=== PATIENT | female | born 1965 | race African-American/Black ===

== ENCOUNTER 2023-06-15 15:50 | Inpatient (IN) | payer MEDICARE, OTHER ==
[~2023-06-15] VITALS: Ht 172.7 cm; Wt 98.9 kg
[2023-06-15] MEDS ORDERED: OLAN20TA3 PO (16:11)
[2023-06-15] MEDS ORDERED: NA P133E RC (16:11)
[2023-06-15] MEDS ORDERED: LOXA25CA PO (16:11)
[2023-06-15] MEDS ORDERED: LORA-259 PO (16:11)
[2023-06-15] MEDS ORDERED: ACET-868 PO (16:11)
[2023-06-15] MEDS ORDERED: BISA10SU11 RC (16:11)
[2023-06-15] MEDS ORDERED: BENZ1TAB7 PO (16:11)
[2023-06-15] MEDS ORDERED: MAGN400O6 PO (16:11)
[2023-06-15] MEDS ORDERED: DIVA500T2 PO (16:11)
[2023-06-15 17:30] LABS: BASOPHILS # (AUTO) 0.1 K/uL (0.0-0.2); BASOPHILS % (AUTO) 1.1 % (0.0-2.0); EOSINOPHILS # (AUTO) 0.3 K/uL (0.0-0.7); HEMATOCRIT 36 % (33-45); HEMOGLOBIN 11.6 g/dL (11.5-14.8); LYMPHOCYTES # (AUTO) 2.7 K/uL (0.8-4.8); LYMPHOCYTES % (AUTO) 38.3 % (20.0-44.0); MEAN CORPUSCULAR HEMOGLOBIN 27 PG (26.0-33.0); MEAN CORPUSCULAR HGB CONC 32 g/dl (31.0-36.0); MEAN CORPUSCULAR VOLUME 86 fL (82-100); MONOCYTES # (AUTO) 0.6 K/uL (0.1-1.30); MONOCYTES % (AUTO) 8.3 % (2.0-12.0); NEUTROPHILS # (AUTO) 3.4 K/uL (1.8-8.9); NEUTROPHILS % (AUTO) 48.3 % (43.0-81.0); PLATELET COUNT (AUTO) 217 K/uL (150-450); RED BLOOD CELL COUNT(AUTO) 4.24 MIL/uL (4.0-5.2); RED CELL DISTRIBUTION WIDTH 16.9 % (11.5-15.0); WHITE BLOOD COUNT (AUTO) 7.1 K/uL (4.3-11.0)
[2023-06-15 17:53] LABS: AMPHETAMINE, URINE NEGATIVE (NEGATIVE); BARBITURATE, URINE NEGATIVE (NEGATIVE); BENZODIAZEPINE, URINE NEGATIVE (NEGATIVE); CANNABINOID, URINE NEGATIVE (NEGATIVE); COCCAINE, URINE NEGATIVE (NEGATIVE); OPIATE, URINE NEGATIVE (NEGATIVE); PHENCYCLIDINE SCREEN,URINE NEGATIVE (NEGATIVE)
[2023-06-15 18:05] LABS: CALCIUM, SERUM 8.7 mg/dL (8.5-10.1); CARBON DIOXIDE 26 mmol/L (21-32); CHLORIDE 102 mmol/L (98-107); CREATININE 0.7 mg/dL (0.6-1.3); GLUCOSE 87 mg/dL (74-106); POTASSIUM 3.9 mmol/L (3.5-5.1); SODIUM SERUM 131 mmol/L (136-145); UREA NITROGEN, BLOOD 19 mg/dL (7-18)
[2023-06-15 18:09] LABS: APPEARANCE,URINE Clear (CLEAR); BILIRUBIN,URINE Negative (NEGATIVE); BLOOD, URINE Negative Ery/uL (NEGATIVE); COLOR,URINE YELLOW (YELLOW); KETONES,URINE Negative (NEGATIVE); LEUKOCYTE ESTERASE ,URINE Negative (NEGATIVE); NITRITE, URINE Negative (NEGATIVE); PH,URINE 6.5 (5.0-8.0); PROTEIN,URINE Negative (NEGATIVE); UGLUCOSE 100 MG/DL mg/dL (NEGATIVE); UROBILINOGEN,URINE 0.2 EU/dL (0.2)
[2023-06-15 18:16] LABS: ALANINE AMINOTRANSFERASE 13 U/L (12-78); ALBUMIN 3.2 g/dL (3.4-5.0); ALCOHOL, BLOOD < 3 mg/dL (0-10); ALKALINE PHOSPHATASE 83 U/L (46-116); ASPARTATE AMINOTRANSFERASE 17 U/L (15-37); BILIRUBIN,DIRECT 0.1 mg/dL (0.0-0.2); BILIRUBIN,TOTAL 0.2 mg/dL (0.2-1.0); TOTAL PROTEIN, SERUM 7.3 g/dL (6.4-8.2)
[2023-06-15 18:17] LABS: ACETAMINOPHEN <10 ug/ml (10-30); SALICYLATE 1.6 mg/dL (2.8-20.0)
[2023-06-15] MEDS ORDERED: OLANZAPINE 10 MG VIAL IM ONE (19:14)
[2023-06-15] MEDS ORDERED: diphenhydrAMINE HCL 50 MG/ML VIAL ONE (19:14)
[2023-06-15] MEDS ORDERED: LORAZEPAM INJ 2 MG/ML VIAL ONE (19:15)
[2023-06-15] MEDS: diphenhydrAMINE HCL 50 MG/ML VIAL IM ONE (19:23)
[2023-06-15] MEDS: LORAZEPAM INJ 2 MG/ML VIAL IM ONE (19:23)
[2023-06-15] MEDS: OLANZAPINE 10 MG VIAL IM ONE (19:24)
[2023-06-15 21:20] VITALS: BP 134/84; TEMP 97.9; O2SAT 96
[2023-06-15] MEDS ORDERED: NA PHOS,M-B/NA PHOS,DI-BA 1 EA ENEMA RC PRN (21:30)
[2023-06-15] MEDS ORDERED: LORAZEPAM 0.5 MG TABLET PO PRN (21:30)
[2023-06-15] MEDS ORDERED: MAG HYDROX/AL HYDROX/SIMETH 30 ML UDC PO PRN (21:30)
[2023-06-15] MEDS ORDERED: ACETAMINOPHEN 325 MG TABLET PO PRN (21:30)
[2023-06-15] MEDS ORDERED: MAGNESIUM HYDROXIDE 30 ML UDC PO PRN (21:30)
[2023-06-15] MEDS: BLOOD SUGAR DIAGNOSTIC 1 EACH STRIP IN ONE (22:17)
[2023-06-16 08:00] VITALS: BP_SYST 121; TEMP 98.1; O2SAT 98
[2023-06-16] MEDS: DIVALPROEX SODIUM 125 MG CAP.SPRINK PO SCH (11:07)
[2023-06-16] MEDS: risperiDONE 1 MG TABLET PO SCH (11:08)
[2023-06-16 15:30] VITALS: BP 106/90; TEMP 97.3; O2SAT 97
[2023-06-16 21:57] VITALS: BP 124/102; TEMP 98.4; O2SAT 98
[2023-06-17 08:00] VITALS: BP 135/85; TEMP 98.6; O2SAT 98
[2023-06-17 08:39] LABS: CREATININE 0.6 mg/dL (0.6-1.3)
[2023-06-17 09:34] LABS: CREATININE 0.6 mg/dL (0.6-1.3); PHOSPHORUS 3.9 mg/dL (2.5-4.9); POTASSIUM 4.5 mmol/L (3.5-5.1)
[2023-06-17 09:47] LABS: THYROID STIMULATING HORMONE 1.109 uIU/mL (0.358-3.74)
[2023-06-17 10:11] LABS: CALCIUM, SERUM 8.9 mg/dL (8.5-10.1)
[2023-06-17] MEDS ORDERED: HALOPERIDOL LACTATE INJ 5 MG/ML VIAL IM PRN (10:30)
[2023-06-17 16:00] VITALS: BP_SYST 150; TEMP 98.6; O2SAT 99
[2023-06-17 17:13] LABS: URIC ACID 3.4 mg/dL (2.6-7.2)
[2023-06-17 20:47] VITALS: BP 154/86; TEMP 97.9; O2SAT 100
[2023-06-18] MEDS: LORAZEPAM 0.5 MG TABLET PO PRN (03:00)
[2023-06-18 08:00] VITALS: BP 134/95; TEMP 98.2; O2SAT 99
[2023-06-18] MEDS: risperiDONE 1 MG TABLET PO SCH (14:03)
[2023-06-18 16:00] VITALS: BP 148/79; TEMP 98.4; O2SAT 98
[2023-06-18 20:00] VITALS: BP 115/82; TEMP 97.8; O2SAT 97
[2023-06-19] MEDS: TEMAZEPAM 7.5 MG CAPSULE PO PRN (01:47)
[2023-06-19 16:00] VITALS: BP 108/56; TEMP 98.1; O2SAT 93
[2023-06-19 20:00] VITALS: BP 115/76; TEMP 98.5; O2SAT 97
[2023-06-20 08:00] VITALS: BP 128/83; TEMP 98.9; O2SAT 100
[2023-06-20 16:00] VITALS: BP 115/71; TEMP 97.9; O2SAT 99
[2023-06-21 08:00] VITALS: BP 126/66; TEMP 97.6; O2SAT 97
[2023-06-21] MEDS: PALIPERIDONE PALMITATE 234 MG/1.5 ML SYRINGE IM ONE (12:44)
[2023-06-21 16:00] VITALS: BP 136/90; TEMP 98; O2SAT 98
[2023-06-21 22:25] VITALS: BP 152/90; TEMP 98; O2SAT 99
[2023-06-21 23:40] VITALS: BP 138/88; TEMP 98.6; O2SAT 98
[2023-06-22 08:00] VITALS: BP 122/84; TEMP 97.9; O2SAT 97
[2023-06-22] MEDS: HALOPERIDOL LACTATE INJ 5 MG/ML VIAL IM ONE (10:15)
[2023-06-22] MEDS: diphenhydrAMINE HCL 50 MG/ML VIAL IM ONE (10:15)
[2023-06-22 16:00] VITALS: BP 126/90; TEMP 98.1; O2SAT 98
[2023-06-22] MEDS: BENZTROPINE MESYLATE (1 MG) 1 MG TABLET PO SCH (17:05)
[2023-06-22] MEDS: HALOPERIDOL 5 MG TABLET PO SCH (17:05)
[2023-06-22 20:37] VITALS: BP 113/63; TEMP 98.1; O2SAT 99
[2023-06-23 08:00] VITALS: BP 162/91; TEMP 98.2; O2SAT 96
[2023-06-23 16:00] VITALS: BP 126/105; TEMP 98; O2SAT 97
[2023-06-23 20:42] VITALS: BP 116/74; TEMP 98.1; O2SAT 99
[2023-06-24 08:00] VITALS: BP 112/68; TEMP 98.6; O2SAT 98
[2023-06-24 16:00] VITALS: BP 106/75; TEMP 98; O2SAT 98
[2023-06-25 08:00] VITALS: BP 148/99; TEMP 97.7; O2SAT 100
[2023-06-25] MEDS: BENZTROPINE MESYLATE (1 MG) 1 MG TABLET PO SCH (12:12)
[2023-06-25 16:00] VITALS: BP 146/92; TEMP 97.6; O2SAT 98
[2023-06-25 20:00] VITALS: BP 124/89; TEMP 98; O2SAT 100
[2023-06-26 08:00] VITALS: BP 117/100; TEMP 97.6; O2SAT 98
[2023-06-26] MEDS: HALOPERIDOL 5 MG TABLET PO SCH (09:00)
[2023-06-26 16:00] VITALS: BP 135/99; TEMP 98; O2SAT 96
[2023-06-26 20:00] VITALS: BP 105/61; TEMP 98.5; O2SAT 97
[2023-06-27 08:00] VITALS: BP 114/78; TEMP 98.6; O2SAT 99
[2023-06-27] MEDS: diphenhydrAMINE HCL 50 MG/ML VIAL IM PRN (14:40)
[2023-06-27 16:00] VITALS: BP 134/89; TEMP 98.3; O2SAT 97
[2023-06-27 20:00] VITALS: BP 107/69; TEMP 98.1; O2SAT 99
[2023-06-28 08:00] VITALS: BP 128/103; TEMP 98.8; O2SAT 98
[2023-06-28 16:00] VITALS: BP 140/89; TEMP 98; O2SAT 100
[2023-06-28 20:34] VITALS: BP 160/98; TEMP 98.4; O2SAT 100
[2023-06-29 08:00] VITALS: BP 139/63; TEMP 98.7; O2SAT 97
[2023-06-29] MEDS: PALIPERIDONE PALMITATE 156 MG/ML SYRINGE IM ONE (09:08)
[2023-06-29 16:00] VITALS: BP 134/90; TEMP 97.9; O2SAT 96
[2023-06-29 20:58] VITALS: BP 143/98; TEMP 98.1; O2SAT 100
[2023-06-30 07:59] LABS: CREATININE 0.7 mg/dL (0.6-1.3); POTASSIUM 4.2 mmol/L (3.5-5.1)
[2023-06-30 08:00] VITALS: BP 139/88; TEMP 97.9; O2SAT 98
== END 2023-06-30 13:25 | DRG 885 ==
LOC: ER 15:55 → GPS 20:38
PROVIDERS: ADMIT Psychiatry & Neurology Psychiatry; ATTEND Nurse Practitioner Acute Care
DX: F25.0 Schizoaffective disorder, bipolar type (principal); E44.1 Mild protein-calorie malnutrition; E87.1 Hypo-osmolality and hyponatremia; F29 Unspecified psychosis not due to a substance or known physiological condition; Z79.899 Other long term (current) drug therapy; I10 Essential (primary) hypertension; M15.9 Polyosteoarthritis, unspecified; E11.9 Type 2 diabetes mellitus without complications; E88.09 Other disorders of plasma-protein metabolism, not elsewhere classified; Z79.4 Long term (current) use of insulin; Z87.440 Personal history of urinary (tract) infections; Z68.33 Body mass index [BMI] 33.0-33.9, adult
CPT/HCPCS: 36415; 80048-TC; 80061-TC; 80076-TC; 80164-TC; 82565-TC; 82962-TC; 83735-TC; 84100-TC; 84443-TC; 84550-TC; 85025-TC; 87081-TC; G0480; J1200; J1630; J2060; J2426; J3490

== ENCOUNTER 2023-07-04 21:42 | Inpatient (IN) | payer MEDICARE, OTHER ==
[~2023-07-04] VITALS: Ht 170.2 cm; Wt 72.6 kg
[~2023-07-04 21:42] MED LIST: ACET-868 PO; BENZ1TAB7 PO; BISA10SU11 RC; DIVA500T2 PO; LORA-259 PO; LOXA25CA PO; MAGN400O6 PO; NA P133E RC; OLAN20TA3 PO; TUBE5VIA TD
[2023-07-04 23:08] LABS: BASOPHILS # (AUTO) 0.1 K/uL (0.0-0.2); BASOPHILS % (AUTO) 0.9 % (0.0-2.0); EOSINOPHILS # (AUTO) 0.2 K/uL (0.0-0.7); EOSINOPHILS % (AUTO) 3.3 % (0.0-6.0); HEMATOCRIT 35 % (33-45); HEMOGLOBIN 11.5 g/dL (11.5-14.8); LYMPHOCYTES # (AUTO) 2.6 K/uL (0.8-4.8); LYMPHOCYTES % (AUTO) 39.3 % (20.0-44.0); MEAN CORPUSCULAR HEMOGLOBIN 28 PG (26.0-33.0); MEAN CORPUSCULAR HGB CONC 33 g/dl (31.0-36.0); MEAN CORPUSCULAR VOLUME 86 fL (82-100); MONOCYTES # (AUTO) 0.6 K/uL (0.1-1.30); MONOCYTES % (AUTO) 8.9 % (2.0-12.0); NEUTROPHILS # (AUTO) 3.2 K/uL (1.8-8.9); NEUTROPHILS % (AUTO) 47.6 % (43.0-81.0); PLATELET COUNT (AUTO) 229 K/uL (150-450); RED BLOOD CELL COUNT(AUTO) 4.06 MIL/uL (4.0-5.2); RED CELL DISTRIBUTION WIDTH 16.3 % (11.5-15.0); WHITE BLOOD COUNT (AUTO) 6.7 K/uL (4.3-11.0)
[2023-07-04 23:25] LABS: ALANINE AMINOTRANSFERASE 11 U/L (12-78); ALBUMIN 2.9 g/dL (3.4-5.0); ALCOHOL, BLOOD < 3 mg/dL (0-10); ALKALINE PHOSPHATASE 100 U/L (46-116); ASPARTATE AMINOTRANSFERASE 14 U/L (15-37); BILIRUBIN,TOTAL 0.3 mg/dL (0.2-1.0); CALCIUM, SERUM 8.2 mg/dL (8.5-10.1); CARBON DIOXIDE 30 mmol/L (21-32); CHLORIDE 106 mmol/L (98-107); CREATININE 0.7 mg/dL (0.6-1.3); GLUCOSE 101 mg/dL (74-106); POTASSIUM 4.1 mmol/L (3.5-5.1); SODIUM SERUM 141 mmol/L (136-145); TOTAL PROTEIN, SERUM 7.1 g/dL (6.4-8.2); UREA NITROGEN, BLOOD 12 mg/dL (7-18)
[2023-07-04 23:31] LABS: SALICYLATE 1.6 mg/dL (2.8-20.0)
[2023-07-04 23:32] LABS: ACETAMINOPHEN <10 ug/ml (10-30)
[2023-07-05 00:05] LABS: APPEARANCE,URINE CLEAR (CLEAR); BILIRUBIN,URINE NEGATIVE (NEGATIVE); BLOOD, URINE NEGATIVE Ery/uL (NEGATIVE); COLOR,URINE YELLOW (YELLOW); KETONES,URINE NEGATIVE (NEGATIVE); LEUKOCYTE ESTERASE ,URINE 2+ (NEGATIVE); NITRITE, URINE NEGATIVE (NEGATIVE); PH,URINE 6.5 (5.0-8.0); PROTEIN,URINE NEGATIVE (NEGATIVE); UGLUCOSE NEGATIVE (NEGATIVE)
[2023-07-05 00:13] LABS: AMPHETAMINE, URINE NEGATIVE (NEGATIVE); BARBITURATE, URINE NEGATIVE (NEGATIVE); BENZODIAZEPINE, URINE NEGATIVE (NEGATIVE); CANNABINOID, URINE NEGATIVE (NEGATIVE); COCCAINE, URINE NEGATIVE (NEGATIVE); OPIATE, URINE NEGATIVE (NEGATIVE); PHENCYCLIDINE SCREEN,URINE NEGATIVE (NEGATIVE)
[2023-07-05 00:20] LABS: ADD URINE CULTURE YES; BACTERIA,URINE 1+ /HPF (None Seen); RBC,URINE NONE SEEN /HPF (0-2)
[2023-07-05] MEDS ORDERED: BENZ1TAB7 PO (03:35)
[2023-07-05] MEDS ORDERED: PALI156D IM (03:35)
[2023-07-05] MEDS ORDERED: LORA-259 PO (03:35)
[2023-07-05] MEDS ORDERED: ACET325T53 PO (03:35)
[2023-07-05] MEDS ORDERED: TEMA7.5C12 PO (03:35)
[2023-07-05] MEDS ORDERED: DIVA125C5 PO (03:35)
[2023-07-05] MEDS ORDERED: MAG HYDROX/AL HYDROX/SIMETH 30 ML UDC PO PRN (05:00)
[2023-07-05] MEDS ORDERED: MAGNESIUM HYDROXIDE 30 ML UDC PO PRN (05:00)
[2023-07-05] MEDS ORDERED: ACETAMINOPHEN 325 MG TABLET PO PRN (05:00)
[2023-07-05 05:13] VITALS: BP 128/76; TEMP 98; O2SAT 98
[2023-07-05] MEDS: BLOOD SUGAR DIAGNOSTIC 1 EACH STRIP IN ONE (05:32)
[2023-07-05 08:00] VITALS: BP 125/85; TEMP 98.6; O2SAT 96
[2023-07-05] MEDS ORDERED: MAG-151 PO (08:54)
[2023-07-05] MEDS: CEPHALEXIN MONOHYDRATE 500 MG CAPSULE PO SCH (11:47)
[2023-07-05] MEDS: BENZTROPINE MESYLATE (1 MG) 1 MG TABLET PO SCH ×2 (12:29→16:36)
[2023-07-05 16:00] VITALS: BP 148/90; TEMP 97.6; O2SAT 100
[2023-07-05] MEDS: DIVALPROEX SODIUM 250 MG TABLET.DR PO SCH (16:36)
[2023-07-05 20:00] VITALS: BP 170/90; TEMP 98; O2SAT 100
[2023-07-06 08:00] VITALS: BP 130/83; TEMP 97.9; O2SAT 97
[2023-07-06] MEDS: HALOPERIDOL 5 MG TABLET PO SCH (11:13)
[2023-07-06] MEDS: LORAZEPAM 1 MG TABLET PO PRN (12:09)
[2023-07-06 16:00] VITALS: BP 111/84; TEMP 98.4; O2SAT 95
[2023-07-06 16:19] LABS: BASOPHILS % (AUTO) 0.3 % (0.0-2.0); EOSINOPHILS # (AUTO) 0.2 K/uL (0.0-0.7); EOSINOPHILS % (AUTO) 3.1 % (0.0-6.0); HEMATOCRIT 36 % (33-45); HEMOGLOBIN 11.4 g/dL (11.5-14.8); LYMPHOCYTES # (AUTO) 2.5 K/uL (0.8-4.8); LYMPHOCYTES % (AUTO) 42.8 % (20.0-44.0); MEAN CORPUSCULAR HEMOGLOBIN 28 PG (26.0-33.0); MEAN CORPUSCULAR HGB CONC 32 g/dl (31.0-36.0); MEAN CORPUSCULAR VOLUME 86 fL (82-100); MONOCYTES # (AUTO) 0.6 K/uL (0.1-1.30); MONOCYTES % (AUTO) 10.3 % (2.0-12.0); NEUTROPHILS # (AUTO) 2.5 K/uL (1.8-8.9); NEUTROPHILS % (AUTO) 43.5 % (43.0-81.0); PLATELET COUNT (AUTO) 224 K/uL (150-450); RED BLOOD CELL COUNT(AUTO) 4.14 MIL/uL (4.0-5.2); RED CELL DISTRIBUTION WIDTH 16.2 % (11.5-15.0); WHITE BLOOD COUNT (AUTO) 5.8 K/uL (4.3-11.0)
[2023-07-06 16:47] LABS: CREATININE 0.8 mg/dL (0.6-1.3)
[2023-07-06 21:08] VITALS: BP 150/89; TEMP 98.1; O2SAT 99
[2023-07-07 08:00] VITALS: BP 132/100; TEMP 97.8; O2SAT 100
[2023-07-07 16:00] VITALS: BP 128/88; TEMP 98.2; O2SAT 100
[2023-07-07 20:49] VITALS: BP 130/80; TEMP 98.4; O2SAT 100
[2023-07-08 08:00] VITALS: BP 115/73; TEMP 97.9; O2SAT 99
[2023-07-08 16:00] VITALS: BP 138/70; TEMP 97.9; O2SAT 98
[2023-07-09] MEDS: ZOLPIDEM TARTRATE 5 MG TABLET PO PRN
[2023-07-09 08:00] VITALS: BP 130/84; TEMP 98; O2SAT 99
[2023-07-09] MEDS ORDERED: DIVALPROEX SODIUM 500 MG TABLET.DR PO SCH (17:00)
== END 2023-07-09 15:40 | DRG 885 ==
LOC: ER 21:55 → GPS 07-05 03:28
PROVIDERS: ADMIT Nurse Practitioner Psychiatric/Mental Health; ATTEND Internal Medicine
DX: F25.0 Schizoaffective disorder, bipolar type (principal); G93.41 Metabolic encephalopathy; E44.0 Moderate protein-calorie malnutrition; N39.0 Urinary tract infection, site not specified; F29 Unspecified psychosis not due to a substance or known physiological condition; I10 Essential (primary) hypertension; M15.9 Polyosteoarthritis, unspecified; Z79.899 Other long term (current) drug therapy; E11.9 Type 2 diabetes mellitus without complications; E88.09 Other disorders of plasma-protein metabolism, not elsewhere classified; B96.89 Other specified bacterial agents as the cause of diseases classified elsewhere; F03.90 Unspecified dementia, unspecified severity, without behavioral disturbance, psychotic disturbance, mood disturbance, and anxiety
CPT/HCPCS: 36415; 80048-TC; 80053-TC; 80061-TC; 80164-TC; 81001; 85025-TC; 87081-TC; 87086-TC; 97116-TC; 97530-TC; G0480